=== PATIENT | female | born 2000 | race Caucasian/White ===

== ENCOUNTER 2023-04-11 14:54 | Emergency (ER) | payer BC, SELFPAY ==
[2023-04-11 14:59] VITALS: BP 125/73; PULSE 75; RESP 16; TEMP 36.9; O2SAT 98; BMI 21.9
--- NOTE | 2023-04-11 15:13 | XR_ITS ---
The [address] [address] Patient Name: YAN BERNAL MRN: [id number] date: 2000 Sex: F Assigned Patient Location: ER Current Patient Location: ER Accession/Order Number: [id number] Exam Date: 04/11/2023 16:15 Report Date: 04/11/2023 16:40 At the request of: SARA JASSO Procedure: XR shoulder RT min 2V STUDY: XR shoulder RT min 2V, XR clavicle RT, [id number], [id number] HISTORY: fall COMPARISON: None FINDINGS: No acute fracture, dislocation, or suspicious osseous lesion. No significant degenerative changes. Visualized soft tissues are within normal limits. XR/XR shoulder RT min 2V IMPRESSION: No acute osseous abnormality of the right shoulder or right clavicle. Electronically authenticated by: ANETA GONZALEZ Date: 04/11/2023 16:40
--- NOTE | 2023-04-11 15:13 | XR_ITS ---
The [place] [id number] Patient Name: YAN BERNAL MRN: [id number] date: 2000 Sex: F Assigned Patient Location: ER Current Patient Location: ER Accession/Order Number: [id number] Exam Date: 04/11/2023 16:15 Report Date: 04/11/2023 17:01 At the request of: SARA JASSO Procedure: XR lumbar spine 2-3V EXAMINATION: XR lumbar spine 2-3V, [id number] HISTORY: fall COMPARISON: None. FINDINGS: There are 5 nonrib-bearing lumbar-type vertebral bodies. No acute fracture or suspicious osseous lesion. Spinal alignment is within normal limits. Anterior osteophytic lipping at L1-L2. Soft tissues are within normal limits. XR/XR lumbar spine 2-3V IMPRESSION: 1. No acute osseous abnormality of the lumbar spine. 2. Minimal spondylosis at L1-L2. Electronically authenticated by: ANETA GONZALEZ Date: 04/11/2023 17:01
--- NOTE | 2023-04-11 15:13 | XR_ITS ---
The [address] [address] Patient Name: YAN BERNAL MRN: [id number] date: 2000 Sex: F Assigned Patient Location: ER Current Patient Location: ER Accession/Order Number: [id number] Exam Date: 04/11/2023 16:15 Report Date: 04/11/2023 16:40 At the request of: SARA JASSO Procedure: XR clavicle RT STUDY: XR shoulder RT min 2V, XR clavicle RT, [id number], [id number] HISTORY: fall COMPARISON: None FINDINGS: No acute fracture, dislocation, or suspicious osseous lesion. No significant degenerative changes. Visualized soft tissues are within normal limits. XR/XR clavicle RT IMPRESSION: No acute osseous abnormality of the right shoulder or right clavicle. Electronically authenticated by: ANETA GONZALEZ Date: 04/11/2023 16:40
--- NOTE | 2023-04-11 15:14 | ED.UPPEXIN1 ---
Documented by User: MAIK Wallace 04/11/23 17:15 HPI - Extremity Injury (Upper) General Chief Complaint: Extremity Injury, Upper Stated Complaint: UPPER EXTREMITY INJURY RIGHT SHOULDER Time Seen by Provider: 04/11/23 14:56 Source: patient and friend Mode of arrival: walk-in Limitations: no limitations History of Present Illness HPI narrative: Patient is a 22-year-old female presents to the emergency department for the evaluation of injury to the right shoulder after falling 4-5 stairs inside her home. She states she slipped and landed on her right shoulder. She does have mild low back pain but is able to ambulate, she denies head injury, loss of consciousness, neck pain. She is not concerned for . No medications taken prior to arrival. She is right-hand dominant. No peripheral paresthesias to the right arm. Related Data Previous Rx's Medication Instructions Recorded methocarbamol 750 mg tablet 750 mg PO TID PRN pain #20 tabs 04/11/23 naproxen sodium 550 mg tablet 550 mg PO BID PRN pain #10 tabs 04/11/23 Allergies Allergy/AdvReac Type Severity Reaction Status Date / Time No Known Drug Allergies Allergy Verified 04/11/23 15:02 Review of Systems ROS Constitutional Denies: fever or chills Ears, nose, mouth, and throat Denies: throat pain Cardiovascular Denies: chest pain Respiratory Denies: shortness of breath or cough Gastrointestinal Denies: abdominal pain, nausea or vomiting Musculoskeletal Reports: back pain, extremity pain and joint pain; Denies: neck pain Integumentary/Breast Denies: rash Neurological Denies: headache, numbness in extremities or weakness in extremities Hematologic/Lymphatic Denies: easy bruising PFSH PFSH Social History Smoking status: Current every day smoker Exam Narrative Exam Narrative: Gen.: Awake, alert, in no distress Head: Normocephalic, atraumatic ENT: Moist mucous membranes; no facial or dental injury, no cervical tenderness on the posterior cervical spine Respiratory: No respiratory distress Back: Mild tenderness of the lumbar spine diffusely with no bony point tenderness or obvious deformity Extremities: Limited abduction at the right shoulder, 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 Tenderness of the right clavicle and right glenohumeral joint with no obvious deformity or sulcus sign. 2+ right radial pulse Psych: Normal mood and affect Neuro: No focal neuro deficit Skin: Warm, dry, intact Constitutional Vital Signs, click to edit/add: Last Vital Signs Temp 98.5 F 04/11/23 14:59 Pulse 75 04/11/23 14:59 Resp 16 04/11/23 14:59 BP 125/73 04/11/23 14:59 Pulse Ox 98 04/11/23 14:59 O2 Del Method Room Air 04/11/23 14:59 Course Vital Signs Vital signs: Vital Signs Temperature 98.5 F 04/11/23 14:59 Pulse Rate 75 04/11/23 14:59 Respiratory Rate 16 04/11/23 14:59 Blood Pressure 125/73 04/11/23 14:59 Pulse Oximetry 98 04/11/23 14:59 Oxygen Delivery Method Room Air 04/11/23 14:59 Temperature 98.5 F 04/11/23 14:59 Pulse Rate 75 04/11/23 14:59 Respiratory Rate 16 04/11/23 14:59 Blood Pressure 125/73 04/11/23 14:59 Pulse Oximetry 98 04/11/23 14:59 Oxygen Delivery Method Room Air 04/11/23 14:59 MDM - Extremity Injury (Upper) Medical Records Attestation: I reviewed the patient's medical records. Imaging Data XR clavicle + shoulder: Attestation: I have reviewed the pertinent imaging results. Radiologist's impression: Procedure: XR clavicle RT STUDY: XR shoulder RT min 2V, XR clavicle RT, [id number], [id number] HISTORY: fall COMPARISON: None FINDINGS: No acute fracture, dislocation, or suspicious osseous lesion. No significant degenerative changes. Visualized soft tissues are within normal limits. IMPRESSION: No acute osseous abnormality of the right shoulder or right clavicle. Electronically authenticated by: ANETA GONZALEZ Date: 04/11/2023 16:40 XR lumbar: Attestation: I have reviewed the pertinent imaging results. Discharge Plan Discharge Chief Complaint: Extremity Injury, Upper Clinical Impression: Low back pain, Contusion of right shoulder Patient Disposition: Home, Self-Care Time of Disposition Decision: 17:14 Condition: Good Mode of Transportation: Private Vehicle Prescriptions / Home Meds: New methocarbamol 750 mg tablet 750 mg PO TID PRN (Reason: pain) Qty: 20 0RF naproxen sodium 550 mg tablet 550 mg PO BID PRN (Reason: pain) Qty: 10 0RF Instructions: Contusion in Adults (ED) Stand Alone Forms: Portal Instructions Referrals: Physician,Non-Staff, [Primary Care Provider] - 1 week Discharge Date/Time: 04/11/23 17:19 Documented by User: Gerry Arriaza MD 04/11/23 20:13 HPI - Extremity Injury (Upper) General Chief Complaint: Extremity Injury, Upper Stated Complaint: UPPER EXTREMITY INJURY RIGHT SHOULDER Time Seen by Provider: 04/11/23 14:56 Related Data Previous Rx's Medication Instructions Recorded methocarbamol 750 mg tablet 750 mg PO TID PRN pain #20 tabs 04/11/23 naproxen sodium 550 mg tablet 550 mg PO BID PRN pain #10 tabs 04/11/23 Allergies Allergy/AdvReac Type Severity Reaction Status Date / Time No Known Drug Allergies Allergy Verified 04/11/23 15:02 PFSH PFSH Social History Smoking status: Current every day smoker Exam Constitutional Vital Signs, click to edit/add: Last Vital Signs Temp 98.5 F 04/11/23 14:59 Pulse 75 04/11/23 14:59 Resp 16 04/11/23 14:59 BP 125/73 04/11/23 14:59 Pulse Ox 98 04/11/23 14:59 O2 Del Method Room Air 04/11/23 14:59 Course Vital Signs Vital signs: Vital Signs Temperature 98.5 F 04/11/23 14:59 Pulse Rate 75 04/11/23 14:59 Respiratory Rate 16 04/11/23 14:59 Blood Pressure 125/73 04/11/23 14:59 Pulse Oximetry 98 04/11/23 14:59 Oxygen Delivery Method Room Air 04/11/23 14:59 Temperature 98.5 F 04/11/23 14:59 Pulse Rate 75 04/11/23 14:59 Respiratory Rate 16 04/11/23 14:59 Blood Pressure 125/73 04/11/23 14:59 Pulse Oximetry 98 04/11/23 14:59 Oxygen Delivery Method Room Air 04/11/23 14:59 MDM - Extremity Injury (Upper) MDM Narrative Medical decision making narrative: I, Dr Arriaza, have reviewed the above progress note and course of action in the ER; agree with the above. I have personally seen and evaluated this patient, gone over history and physical, and discussed disposition and treatment plan with the patient. Discharge Plan Discharge Chief Complaint: Extremity Injury, Upper Clinical Impression: Low back pain, Contusion of right shoulder Patient Disposition: Home, Self-Care Time of Disposition Decision: 17:14 Condition: Good Mode of Transportation: Private Vehicle Prescriptions / Home Meds: New methocarbamol 750 mg tablet 750 mg PO TID PRN (Reason: pain) Qty: 20 0RF naproxen sodium 550 mg tablet 550 mg PO BID PRN (Reason: pain) Qty: 10 0RF Instructions: Contusion in Adults (ED) Stand Alone Forms: Portal Instructions Referrals: Physician,Non-Staff, MD [Primary Care Provider] - 1 week Discharge Date/Time: 04/11/23 17:19
[2023-04-11] MEDS: ORPHENADRINE 60 MG/ 2 ML VIAL IM (15:52)
[2023-04-11] MEDS: HYDROCODONE/ACET 5-325 MG TABLET 1 TAB PO (15:52)
== END 2023-04-11 17:19 | disposition home or self-care (01) ==
PROVIDERS: Emergency Provider Emergency Medicine
DX: S40.011A Contusion of right shoulder, initial encounter (principal); M54.50 Low back pain, unspecified; W01.10XA Fall on same level from slipping, tripping and stumbling with subsequent striking against unspecified object, initial encounter; F17.210 Nicotine dependence, cigarettes, uncomplicated
CPT/HCPCS: 72100; 73000; 73030; 96372; 99285; J2360

== ENCOUNTER 2023-08-14 12:27 | Emergency (ER) | payer BC, SELFPAY ==
[2023-08-14 12:35] VITALS: BP 142/92; PULSE 80; TEMP 36.9; O2SAT 99; BMI 23.8
[2023-08-14 12:55] LABS: Bilirubin Urine NEGATIVE (NEGATIVE); Blood Urine LARGE (NEGATIVE); Clarity Urine CLEAR (CLEAR); Color Urine LT. YELLOW (YELLOW); Glucose Urine UA NEGATIVE (NEGATIVE); Ketones Urine NEGATIVE (NEGATIVE); Leukocyte Esterase Urine NEGATIVE (NEGATIVE); Nitrite Urine NEGATIVE (NEGATIVE); Protein Urine NEGATIVE (NEG/TRACE); Urobilinogen Urine 0.2 EU/dL (0.2-1.0)
[2023-08-14 13:02] LABS: HCG Qualitative Urine* NEGATIVE (NEGATIVE); Urine Microscopic Indicated YES
--- NOTE | 2023-08-14 13:13 | US_ITS ---
The [address] [address] Patient Name: YAN BERNAL MRN: [id number] date: 2000 Sex: F Assigned Patient Location: ER Current Patient Location: ER Accession/Order Number: [id number] Exam Date: 08/14/2023 13:15 Report Date: 08/14/2023 14:35 At the request of: DIONISIO JUAREZ Procedure: US pelvis transvaginal EXAM: US pelvis transvaginal HISTORY: menorrhagia COMPARISON: None available. TECHNIQUE: Real time pelvic ultrasound examination was performed using Duplex Doppler by transabdominal and transvaginal approaches. Transvaginal approach was medically necessary for optimal imaging. FINDINGS: UTERUS: Uterus measures 8.1 x 4.2 x 6.1 cm. No focal myometrial lesions are seen. ENDOMETRIUM: The endometrium is within normal limits. Endometrial stripe measures up to 4 mm in thickness. Trace fluid within the endometrial canal. RIGHT OVARY: The right ovary is normal in size. Right ovary measures 3.4 x 1.8 x 2.1 cm. Arterial and venous blood flow is seen. Resistive index measures 0.47. No suspicious solid or cystic lesions. LEFT OVARY: The left ovary is normal in size. Left ovary measures 3.4 x 2.7 x 3.2 cm. Arterial and venous blood flow is seen. Resistive index measures 0.42. No suspicious solid or cystic lesions. There is no significant pelvic free fluid. US/US pelvis transvaginal IMPRESSION: Trace fluid within the endometrial canal. Otherwise unremarkable sonographic appearance of the pelvis. Electronically authenticated by: KRISHNA ELIZONDO Date: 08/14/2023 14:35
[2023-08-14 13:17] LABS: Bacteria Urine NONE SEEN #/HPF (NONE SEEN); Cast Seen? NONE SEEN #/LPF (NONE SEEN); Crystals Seen? None Seen #/HPF (None Seen); Mucus Urine TRACE (NONE SEEN); RBC Urine 20-50 #/HPF (0-2); Squamous Epithelial Cell Urine RARE #/LPF (NONE/RARE); WBC Urine NONE SEEN #/HPF (NONE SEEN)
[2023-08-14] MEDS: 0.9 % SODIUM CHLORIDE 1,000 ML 1000 ML IV (13:22)
[2023-08-14] MEDS: KETOROLAC TROMETHAMINE 30 MG/ML VIAL 15 MG IVP (13:22)
[2023-08-14 13:28] LABS: Basophils Percent Auto 0.5 % (0.2-2.0); Eosinophils Absolute Auto 0.1 10^3/uL (0.0-0.7); Eosinophils Percent Auto 1.3 % (0.9-7.0); Immature Granulocytes Abs Auto 0.03 10^3/uL (0.00-0.03); Immature Granulocytes Pct Auto 0.3 % (0.0-0.5); Lymphocytes Absolute Auto 2.1 10^3/uL (1.2-3.8); Mean Corpuscular HGB Conc 32.4 g/dL (29.9-35.2); Mean Corpuscular Hemoglobin 28.6 pg (26.7-34.0); Mean Corpuscular Volume 88.1 fL (81.0-99.0); Mean Platelet Volume 10.4 fL (9.5-13.5); Monocytes Absolute Auto 0.9 10^3/uL (0.3-0.8); Monocytes Percent Auto 10.9 % (1.7-12.0); Neutrophils Absolute Auto 5.5 10^3/uL (1.4-6.5); Platelet Count 302 10^3/uL (150-450); Red Cell Distribution Width 13.6 % (11.0-15.0); White Blood Count 8.7 10^3/uL (4.0-11.0)
[2023-08-14 13:40] LABS: HCG Qualitative NEGATIVE (NEGATIVE)
[2023-08-14 13:42] LABS: Alanine Aminotransferase 17 U/L (14-59); Albumin Globulin Ratio 1.1; Albumin Level 4.1 g/dL (3.4-5.0); Alkaline Phosphatase 78 U/L (46-116); Anion Gap 13.4; Aspartate Amino Transferase 10 U/L (15-37); BUN Creatinine Ratio 30.9; Bilirubin Total 0.5 mg/dL (0.2-1.0); Calcium 9.4 mg/dL (8.5-10.1); Carbon Dioxide 24.7 mmol/L (21.0-32.0); Chloride 103 mmol/L (98-107); Estimated GFR (African America >60 (>=60); Estimated GFR (Non-African Ame >60 (>=60); Globulin 3.6 g/dL; Glucose 81 mg/dL (74-106); Potassium 4.1 mmol/L (3.5-5.1); Sodium 137 mmol/L (136-145); Total Protein 7.7 g/dL (6.4-8.2)
--- NOTE | 2023-08-14 14:44 | ED.FEMALEGU1 ---
HPI - Female Genitourinary General Chief complaint: Urogenital-Female Stated complaint: HEAVY VAGINAL BLEEDING Time Seen by Provider: 08/14/23 12:52 Source: patient Mode of arrival: walk-in History of Present Illness HPI Narrative: The patient have history of irregular bleeding during her menstruation, coming to the ER with almost 4 days history of increased menstrual bleeding within her baseline. And lower suprapubic cramping. She really presented yesterday to another facility where they did a blood workup but the patient mentioned that she continued to bleed. She mentioned that she almost get a pad soaked in blood almost every half an hour. No complaint of dizziness nausea vomiting or any other complaints at the moment Related Data Previous Rx's ?Medication ?Instructions ?Recorded ibuprofen 600 mg tablet 600 mg PO Q8H 3 days #9 tabs 08/14/23 Allergies Allergy/AdvReac Type Severity Reaction Status Date / Time No Known Drug Allergies Allergy Verified 04/11/23 15:02 Review of Systems ROS Status of ROS 10 or more systems reviewed and unremarkable except as noted in history and below PFSH PFS Social History Smoking status: Current every day smoker Exam Narrative Exam Narrative: Nurses notes and vital signs reviewed and patient is not hypoxic. General: Well-appearing and in no apparent distress. Skin: Warm, dry, no pallor noted. No rash. Head: Normocephalic, atraumatic. Neck: Supple, non-tender. Eye: Pupils are equal, round and EOMI. No scleral icterus. Ears, Nose, Mouth, and Throat: TM are clear, no nasal mucosal hypertrophy. Oral mucosa is moist, no posterior oropharynx erythema, uvula is mid-line Cardiovascular: Regular Rate and Rhythm without murmur, gallop or rub. Respiratory: No accessory muscle use or respiratory distress. Lungs are clear to auscultation, no wheezing, rales or rhonchi Chest Wall: no tenderness Back: No midline thoracic or lumbar vertebral tenderness. No CVA tenderness Musculoskeletal: normal ROM, no calf or popliteal tenderness, no lower extremity edema/swelling GI: Abdomen is soft, non-distended. Normal bowel sounds. No masses appreciated. No tenderness to palpation. No rebound, guarding, or rigidity noted. Neurological: A&O x4. No cranial nerve dysfunction observed. No truncal ataxia. Moves all extremities. Sensation intact. Psychiatric: Cooperative and interactive. Normal mood and affect. Constitutional Vital Signs, click to edit/add: Last Vital Signs Temp 98.4 F 08/14/23 12:35 Pulse 80 08/14/23 12:35 Resp 16 08/14/23 12:35 BP 142/92 H 08/14/23 12:35 Pulse Ox 99 08/14/23 12:35 O2 Del Method Room Air 08/14/23 12:35 Course Vital Signs Vital signs: Vital Signs Temperature 98.4 F 08/14/23 12:35 Pulse Rate 80 08/14/23 12:35 Respiratory Rate 16 08/14/23 12:35 Blood Pressure 142/92 H 08/14/23 12:35 Pulse Oximetry 99 08/14/23 12:35 Oxygen Delivery Method Room Air 08/14/23 12:35 Temperature 98.4 F 08/14/23 12:35 Pulse Rate 80 08/14/23 12:35 Respiratory Rate 16 08/14/23 12:35 Blood Pressure 142/92 H 08/14/23 12:35 Pulse Oximetry 99 08/14/23 12:35 Oxygen Delivery Method Room Air 08/14/23 12:35 MDM - Female Genitourinary MDM Narrative Medical decision making narrative: The patient CBC and chemistry showed no acute significant pathology Her test is negative Ultrasound shows no acute significant pathology as well the patient is to be given 3 days course of ibuprofen high-dose to take for the next few days Patient to take the medication with food The patient is to follow up with primary care physician in next 2-3 days or to return to the emergency department should any of the signs or symptoms worsen or new symptoms develop. The patient agrees with the following Diagnosis and Treatment plan and the patient will be discharged home. Lab Data Labs: Lab Results 08/14/23 08/14/23 Range/Units 12:45 13:20 WBC 8.7 (4.0-11.0) 10^3/uL RBC 4.20 (4.20-5.40) 10^6/uL Hgb 12.0 (12.0-16.0) g/dL Hct 37.0 (36.0-48.0) % MCV 88.1 (81.0-99.0) fL MCH 28.6 (26.7-34.0) pg MCHC 32.4 (29.9-35.2) g/dL RDW 13.6 (11.0-15.0) % Plt Count 302 (150-450) 10^3/uL MPV 10.4 (9.5-13.5) fL Neut % (Auto) 63.0 (43.0-75.0) % Lymph % (Auto) 24.0 (20.5-60.0) % [place] % (Auto) 10.9 (1.7-12.0) % Eos % (Auto) 1.3 (0.9-7.0) % Baso % (Auto) 0.5 (0.2-2.0) % Neut # (Auto) 5.5 (1.4-6.5) 10^3/uL Lymph # (Auto) 2.1 (1.2-3.8) 10^3/uL [place] # (Auto) 0.9 H (0.3-0.8) 10^3/uL Eos # (Auto) 0.1 (0.0-0.7) 10^3/uL Baso # (Auto) 0.0 (0.0-0.1) 10^3/uL Abs Immat Gran (auto) 0.03 (0.00-0.03) 10^3/uL Imm/Tot Granulo (auto) 0.3 (0.0-0.5) % Sodium 137 (136-145) mmol/L Potassium 4.1 (3.5-5.1) mmol/L Chloride 103 (98-107) mmol/L Carbon Dioxide 24.7 (21.0-32.0) mmol/L Anion Gap 13.4 BUN 17.0 (7.0-18.0) mg/dL Creatinine 0.55 (0.55-1.02) mg/dL Est GFR ( Amer) >60 (>=60) Est GFR (Non-Af Amer) >60 (>=60) BUN/Creatinine Ratio 30.9 Glucose 81 (74-106) mg/dL Calcium 9.4 (8.5-10.1) mg/dL Total Bilirubin 0.5 (0.2-1.0) mg/dL AST 10 L (15-37) U/L ALT 17 (14-59) U/L Alkaline Phosphatase 78 (46-116) U/L Total Protein 7.7 (6.4-8.2) g/dL Albumin 4.1 (3.4-5.0) g/dL Globulin 3.6 g/dL Albumin/Globulin Ratio 1.1 Serum HCG, Qual Negative (NEGATIVE) Urine Color Lt. yellow (YELLOW) Urine Clarity Clear (CLEAR) Urine pH 7.0 (5.0-9.0) Ur Specific [place] 1.020 (1.005-1.025) Urine Protein Negative (NEG/TRACE) mg/dL Urine Glucose (UA) Negative (NEGATIVE) mg/dL Urine Ketones Negative (NEGATIVE) mg/dL Urine Occult Blood Large A (NEGATIVE) Urine Nitrite Negative (NEGATIVE) Urine Bilirubin Negative (NEGATIVE) Urine Urobilinogen 0.2 (0.2-1.0) EU/dL Ur Leukocyte Esterase Negative (NEGATIVE) Urine RBC 20-50 A (0-2) #/HPF Urine WBC None seen (NONE SEEN) #/HPF Ur Squamous Epith Cells Rare (NONE/RARE) #/LPF Urine Crystals None seen (None Seen) #/HPF Urine Bacteria None seen (NONE SEEN) #/HPF Urine Casts None seen (NONE SEEN) #/LPF Urine Mucus Trace A (NONE SEEN) Urine HCG, Qual Negative (NEGATIVE) Blood Type O Negative Antibody Screen Negative Discharge Plan Discharge Stand Alone Forms: Portal Instructions Chief Complaint: Urogenital-Female Clinical Impression: Menorrhagia Qualifiers: Menorrhagia type: with irregular cycle Qualified Code(s): N92.1 - Excessive and frequent menstruation with irregular cycle Patient Disposition: Home, Self-Care Time of Disposition Decision: 14:44 Condition: Good Prescriptions / Home Meds: New ibuprofen 600 mg tablet 600 mg PO Q8H 3 Days Qty: 9 0RF Print Language: Armenian Instructions: Menorrhagia (ED) Additional Instructions: please take meds with food dont take any other NSAID Referrals: Physician,Non-Staff, MD [Primary Care Provider] - 1 week
[2023-08-14 15:01] VITALS: PULSE 74; O2SAT 99
== END 2023-08-14 15:02 | disposition home or self-care (01) ==
PROVIDERS: Emergency Provider Emergency Medicine
DX: N92.1 Excessive and frequent menstruation with irregular cycle (principal); F17.200 Nicotine dependence, unspecified, uncomplicated
CPT/HCPCS: 36415; 76830; 80053; 81001; 84703; 85025; 86850; 86900; 86901; 96372; 99285

== ENCOUNTER 2023-10-16 12:19 | Emergency (ER) | payer BC, SELFPAY ==
[2023-10-16] VITALS (20 sets, daily range): BP systolic 101–121; BP diastolic 58–70; PULSE 60–84; TEMP 36.7; O2SAT 98–100; BMI 24.1
--- NOTE | 2023-10-16 13:23 | ECG_ITS ---
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
--- NOTE | 2023-10-16 13:23 | CT_ITS ---
The [address] [address] Patient Name: YAN BERNAL MRN: [id number] date: 2000 Sex: F Assigned Patient Location: ER Current Patient Location: ER Accession/Order Number: [id number] Exam Date: 10/16/2023 14:00 Report Date: 10/16/2023 14:35 At the request of: SARA JASSO Procedure: CT lumbar spine wo con EXAMINATION: CT lumbar spine wo con HISTORY: Leg weakness, numbness COMPARISON: No relevant comparison available. TECHNIQUE: Axial, Coronal, and Sagittal CT images were created without I.V. contrast material. Dose reduction techniques were achieved by using automated exposure control and/or adjustment of mA and/or kV according to patient size and/or use of iterative reconstruction technique. FINDINGS: PARASPINAL AREA: Normal with no visible mass. BONES: Minimal levocurvature. No acute fracture or spondylolisthesis. No significant spondylosis or facet osteoarthropathy DISC LEVELS: 12-L1: No significant disc/facet abnormality, spinal stenosis, or foraminal stenosis. L1-L2: No significant disc/facet abnormality, spinal stenosis, or foraminal stenosis. L2-L3: No significant disc/facet abnormality, spinal stenosis, or foraminal stenosis. L3-L4: No significant disc/facet abnormality, spinal stenosis, or foraminal stenosis. L4-L5: No significant disc/facet abnormality, spinal stenosis, or foraminal stenosis. L5-S1: No significant disc/facet abnormality, spinal stenosis, or foraminal stenosis. CT/CT lumbar spine wo con IMPRESSION: No acute abnormality Electronically authenticated by: ESDRAS DOHERTY Date: 10/16/2023 14:35
--- NOTE | 2023-10-16 13:25 | ED_ITS ---
HPI HPI - General Adult General Chief complaint: Neuro Symptoms/Deficit Stated complaint: EXTREMITY WEAKNESS/ CVA SYMPTOMS Time Seen by Provider: 10/16/23 12:27 Source: patient and family Mode of arrival: Wheelchair Limitations: no limitations History of Present Illness HPI narrative: Patient is a 23-year-old female who presents to the emergency department with her mother for the evaluation of ongoing worsening neurological symptoms. Patient was admitted 4 days ago at [facility] when she developed blurry vision in her left eye with black spots, left facial numbness and left leg weakness and numbness. She was admitted, evaluated with CT angio of the head and neck as well as echocardiogram, MRI and EEG which were all unremarkable. Neurology consult note from [facility] shows that the the symptoms were suspected to be due to stressors and psychosomatic in nature. She was not prescribed any medication and was discharged yesterday. She states she had a witnessed syncopal episode yesterday, mother estimates it lasted 10 seconds. She had no injury. EMS was apparently contacted and it was offered for the patient to go back to [facility] because she lives in [place], they refused and she presents today for second opinion. Patient states she is now developing visual changes in her right eye, blurriness and black spots. She now also has weakness and numbness to the right leg. She denies any recent illness, she takes no other home medications. She has 2 small children at home. She is not concerned for . Patient states she has not been able to walk for 2 days due to weakness and numbness in her legs. Related Data Home Medications ?Medication ?Instructions ?Recorded ?Confirmed No Known Home Medications 10/16/23 10/16/23 Allergies Allergy/AdvReac Type Severity Reaction Status Date / Time No Known Drug Allergies Allergy Verified 04/11/23 15:02 Opioid HPI Opioid Management Most Recent Opioid Data: Last Pain Scale 7 08/14/23 13:22 Review of Systems ROS Constitutional Denies: fever or chills Eyes Reports: change in vision, blurry vision and blind spots Ears, nose, mouth, and throat Denies: throat pain Cardiovascular Denies: chest pain Respiratory Denies: shortness of breath Gastrointestinal Denies: nausea or vomiting Genitourinary Denies: painful urination Musculoskeletal Reports: back pain; Denies: neck pain or extremity pain Integumentary/Breast Denies: rash Neurological Reports: numbness in extremities and weakness in extremities; Denies: headache Hematologic/Lymphatic Denies: easy bruising or easy bleeding [facility] Social History Smoking status: Current every day smoker Exam Narrative Exam Narrative: Gen.: Awake, alert, in no distress, Able to roll onto her back and uncross her legs Head: Normocephalic, atraumatic ENT: Moist mucous membranes, Bilateral TMs clear Respiratory: No respiratory distress, lungs clear bilaterally Cardio: Regular rate and rhythm Extremities: Moves extremities equally, Upper extremities and lower extremities are symmetric, globally weak. Patient was able to pull herself up to a sitting position, no swelling or redness noted of the extremities Psych: Normal mood and affect Neuro: No focal neuro deficit Skin: Warm, dry, intact Constitutional Vital Signs, click to edit/add: Last Vital Signs Temp 98.0 F 10/16/23 12:27 Pulse 70 10/16/23 14:50 Resp 23 H 10/16/23 14:50 BP 121/70 10/16/23 12:27 Pulse Ox 98 10/16/23 12:27 O2 Del Method Room Air 10/16/23 12:27 Course Vital Signs Vital signs: Vital Signs Temperature 98.0 F 10/16/23 12:27 Pulse Rate 65 10/16/23 12:27 Respiratory Rate 18 10/16/23 12:27 Blood Pressure 121/70 10/16/23 12:27 Pulse Oximetry 98 10/16/23 12:27 Oxygen Delivery Method Room Air 10/16/23 12:27 Temperature 98.0 F 10/16/23 12:27 Pulse Rate 70 10/16/23 14:50 Respiratory Rate 23 H 10/16/23 14:50 Blood Pressure 121/70 10/16/23 12:27 Pulse Oximetry 98 10/16/23 12:27 Oxygen Delivery Method Room Air 10/16/23 12:27 Medical Decision Making MDM Narrative Medical decision making narrative: I attempted to manage the patient's expectations about her ER visit today, she states that she and her mother were hoping for a second opinion or any additional ideas of what might be causing her symptoms. Mother is also concerned that the symptoms are progressing to the right side and have not improved like she states they were told at [facility] that it would over the next several days. On my exam, the patient has global weakness without focal deficit, records obt ained from [facility] showing that she had CTA head/neck as well as MRI of the brain, echocardiogram and EEG. Neurology consult was also obtained. At this time, patient states she has had intermittent back pain so a CT of the lumbar spine was performed, we are unable to get additional MRI images of the spine in the ER. Given the patient's age and progressive neurological symptoms, she was offered a tertiary care transfer as she states she is now unable to walk or complete her ADLs at home. Repeat labs, urine and IV fluids given in the ER. CT of the lumbar spine is unremarkable. I discussed disposition options with the patient if she prefers to follow-up as an outpatient, at this time she is requesting a transfer back to [facility]. Patient was accepted by Dr. Torres, he requested that I speak with neurology on- call before the patient is excepted to [facility]. Dr. Kohler is in agreement with reevaluating the patient from a neurology perspective. Patient with no focal neurodeficits in the ER. She request to have her mother drive her to [facility]. We are awaiting a bed assignment at this time and the patient will be transferred with her lab results, images. Critical care time 35 minutes SUPERVISED APC VISIT, PHYSICIAN ATTESTATION: Based on the medical record the care appears appropriate. ? Medical Records Medical records reviewed: Yes I reviewed the patient's medical records Lab Data Lab results reviewed: Yes I reviewed the patient's lab results Labs: Lab Results 10/16/23 10/16/23 Range/Units 13:30 13:39 WBC 6.7 (4.0-11.0) 10^3/uL RBC 4.26 (4.20-5.40) 10^6/uL Hgb 12.0 (12.0-16.0) g/dL Hct 36.2 (36.0-48.0) % MCV 85.0 (81.0-99.0) fL MCH 28.2 (26.7-34.0) pg MCHC 33.1 (29.9-35.2) g/dL RDW 13.4 (11.0-15.0) % Plt Count 319 (150-450) 10^3/uL MPV 10.4 (9.5-13.5) fL Neut % (Auto) 68.0 (43.0-75.0) % Lymph % (Auto) 24.3 (20.5-60.0) % Miller % (Auto) 6.7 (1.7-12.0) % Eos % (Auto) 0.4 L (0.9-7.0) % Baso % (Auto) 0.3 (0.2-2.0) % Neut # (Auto) 4.6 (1.4-6.5) 10^3/uL Lymph # (Auto) 1.6 (1.2-3.8) 10^3/uL Miller # (Auto) 0.5 (0.3-0.8) 10^3/uL Eos # (Auto) 0.0 (0.0-0.7) 10^3/uL Baso # (Auto) 0.0 (0.0-0.1) 10^3/uL Abs Immat Gran (auto) 0.02 (0.00-0.03) 10^3/uL Imm/Tot Granulo (auto) 0.3 (0.0-0.5) % ESR 8 (<=20) mm/hr PT 11.4 (9.0-11.6) sec INR 1.08 Sodium 141 (136-145) mmol/L Potassium 4.2 (3.5-5.1) mmol/L Chloride 105 (98-107) mmol/L Carbon Dioxide 26.6 (21.0-32.0) mmol/L Anion Gap 13.6 BUN 14.0 (7.0-18.0) mg/dL Creatinine 0.61 (0.55-1.02) mg/dL Est GFR ( Amer) >60 (>=60) Est GFR (Non-Af Amer) >60 (>=60) BUN/Creatinine Ratio 23.0 Glucose 76 (74-106) mg/dL Lactate 0.9 (0.4-2.0) mmol/L Calcium 9.0 (8.5-10.1) mg/dL Magnesium 2.0 (1.8-2.4) mg/dL Total Bilirubin 1.0 (0.2-1.0) mg/dL AST 11 L (15-37) U/L ALT 13 L (14-59) U/L Alkaline Phosphatase 84 (46-116) U/L Troponin I High Sens 4.4 (4.0-51.3) pg/mL C-Reactive Protein <0.50 (<=0.50) mg/dL Total Protein 7.6 (6.4-8.2) g/dL Albumin 4.3 (3.4-5.0) g/dL Globulin 3.3 g/dL Albumin/Globulin Ratio 1.3 TSH 1.143 (0.358-3.740) uIU/mL Serum HCG, Qual Negative (NEGATIVE) Urine Color Lt. yellow (YELLOW) Urine Clarity Clear (CLEAR) Urine pH 6.5 (5.0-9.0) Ur Specific [place] <=1.005 A (1.005-1.025) Urine Protein Negative (NEG/TRACE) mg/dL Urine Glucose (UA) Negative (NEGATIVE) mg/dL Urine Ketones Negative (NEGATIVE) mg/dL Urine Occult Blood Negative (NEGATIVE) Urine Nitrite Negative (NEGATIVE) Urine Bilirubin Negative (NEGATIVE) Urine Urobilinogen 0.2 (0.2-1.0) EU/dL Ur Leukocyte Esterase Trace A (NEGATIVE) Urine RBC 0-2 (0-2) #/HPF Urine WBC 5-10 A (NONE SEEN) #/HPF Ur Squamous Epith Cells Many A (NONE/RARE) #/LPF Urine Crystals None seen (None Seen) #/HPF Urine Bacteria Small A (NONE SEEN) #/HPF Urine Casts None seen (NONE SEEN) #/LPF Urine Mucus None seen (NONE SEEN) Ur Culture Indicated? Yes Imaging Data CT lumbar: Attestation: I have reviewed the pertinent imaging results. Radiologist's impression: ITS Impressions Lumbar Spine CT 10/16/23 13:23 IMPRESSION: No acute abnormality Electronically authenticated by: ESDRAS DOHERTY Date: 10/16/2023 14:35 ECG Data Attestation: I personally reviewed and interpreted this ECG as follows: (Normal sinus rhythm at a rate of 61, no acute ST elevation, no ectopy. EKG reviewed by attending physician) Critical Care Time Critical Care Time Critical Care Time: Yes Total Critical Care Time: 35 Attestation: 35 minutes of critical care time for transfer to a higher level of care Discharge Plan Discharge Chief Complaint: Neuro Symptoms/Deficit Clinical Impression: Paresthesia, Weakness, Inability to walk Patient Disposition: [facility] Time of Disposition Decision: 15:37 Discharge Location: [facility] Condition: Good Mode of Transportation: Private Vehicle Prescriptions / Home Meds: No Action No Known Home Medications Print Language: Tamazight Referrals: Physician,Non-Staff, MD [Primary Care Provider] - 1 week
[2023-10-16 13:50] LABS: Basophils Percent Auto 0.3 % (0.2-2.0); Eosinophils Percent Auto 0.4 % (0.9-7.0); Hematocrit 36.2 % (36.0-48.0); Immature Granulocytes Abs Auto 0.02 10^3/uL (0.00-0.03); Immature Granulocytes Pct Auto 0.3 % (0.0-0.5); Lymphocytes Absolute Auto 1.6 10^3/uL (1.2-3.8); Lymphocytes Percent Auto 24.3 % (20.5-60.0); Mean Corpuscular HGB Conc 33.1 g/dL (29.9-35.2); Mean Corpuscular Hemoglobin 28.2 pg (26.7-34.0); Mean Platelet Volume 10.4 fL (9.5-13.5); Monocytes Absolute Auto 0.5 10^3/uL (0.3-0.8); Monocytes Percent Auto 6.7 % (1.7-12.0); Neutrophils Absolute Auto 4.6 10^3/uL (1.4-6.5); Platelet Count 319 10^3/uL (150-450); Red Blood Count 4.26 10^6/uL (4.20-5.40); Red Cell Distribution Width 13.4 % (11.0-15.0); White Blood Count 6.7 10^3/uL (4.0-11.0)
[2023-10-16 13:53] LABS: Bilirubin Urine NEGATIVE (NEGATIVE); Blood Urine NEGATIVE (NEGATIVE); Clarity Urine CLEAR (CLEAR); Color Urine LT. YELLOW (YELLOW); Glucose Urine UA NEGATIVE (NEGATIVE); Ketones Urine NEGATIVE (NEGATIVE); Leukocyte Esterase Urine TRACE (NEGATIVE); Nitrite Urine NEGATIVE (NEGATIVE); Protein Urine NEGATIVE (NEG/TRACE); Specific Gravity Urine <=1.005 (1.005-1.025); Urobilinogen Urine 0.2 EU/dL (0.2-1.0); pH Urine 6.5 (5.0-9.0)
[2023-10-16 14:01] LABS: Urine Microscopic Indicated YES
[2023-10-16 14:05] LABS: INR 1.08; Prothrombin Time 11.4 sec (9.0-11.6)
[2023-10-16 14:09] LABS: Erythrocyte Sedimentation Rate 8 mm/hr (<=20)
[2023-10-16 14:10] LABS: HCG Qualitative NEGATIVE (NEGATIVE); Internal Control Within Normal Limits; Lactate/Lactic Acid 0.9 mmol/L (0.4-2.0)
[2023-10-16 14:16] LABS: Bacteria Urine SMALL #/HPF (NONE SEEN); Cast Seen? NONE SEEN #/LPF (NONE SEEN); Crystals Seen? None Seen #/HPF (None Seen); Mucus Urine NONE SEEN (NONE SEEN); RBC Urine 0-2 #/HPF (0-2); Squamous Epithelial Cell Urine MANY #/LPF (NONE/RARE); Urine Culture Indicated YES
[2023-10-16] MEDS: 0.9 % SODIUM CHLORIDE 1,000 ML 999 ML IV (14:19)
[2023-10-16 14:24] LABS: Alanine Aminotransferase 13 U/L (14-59); Albumin Globulin Ratio 1.3; Albumin Level 4.3 g/dL (3.4-5.0); Alkaline Phosphatase 84 U/L (46-116); Anion Gap 13.6; Aspartate Amino Transferase 11 U/L (15-37); C Reactive Protein <0.50 mg/dL (<=0.50); Carbon Dioxide 26.6 mmol/L (21.0-32.0); Chloride 105 mmol/L (98-107); Estimated GFR (African America >60 (>=60); Estimated GFR (Non-African Ame >60 (>=60); Globulin 3.3 g/dL; Glucose 76 mg/dL (74-106); Potassium 4.2 mmol/L (3.5-5.1); Sodium 141 mmol/L (136-145); Thyroid Stimulating Hormone 1.143 uIU/mL (0.358-3.740); Total Protein 7.6 g/dL (6.4-8.2); Troponin I High Sensitivity 4.4 pg/mL (4.0-51.3)
== END 2023-10-16 16:40 | disposition short-term general hospital (02) ==
PROVIDERS: Physician Assistant; Emergency Provider Emergency Medicine
DX: R20.2 Paresthesia of skin (principal); F17.200 Nicotine dependence, unspecified, uncomplicated; H53.8 Other visual disturbances; R53.1 Weakness; R26.2 Difficulty in walking, not elsewhere classified; R55 Syncope and collapse
CPT/HCPCS: 36415; 72131; 80053; 81001; 83605; 83735; 84443; 84484; 84703; 85025; 85610; 85652; 86140; 87086; 93005; 96360; 99285